=== PATIENT | male | born 1935 | race Caucasian/White ===

== ENCOUNTER 2018-12-20 16:59 | Emergency (ER) | payer BC ==
[~2018-12-20] VITALS: Ht 167.6 cm; Wt 71.0 kg
[2018-12-20] MEDS ORDERED: ONDANSETRON HCL 4MG/2ML INJ IV STA (17:11)
[2018-12-20 17:41] LABS: BASOPHILS % 0.4 % (0.0-2.0); HEMATOCRIT. 38.9 % (42.0-52.0); LYMPHOCYTES % 30.9 % (20.0-50.0); MEAN CORPUSCULAR HEMOGLOBIN 32.5 pg (28.0-32.0); MEAN CORPUSCULAR VOLUME 97.7 fL (80.0-94.0); MEAN PLATELET VOLUME 9.4 fl (7.4-10.4); MONOCYTES % 7.5 % (2.0-8.0); NEUTROPHILS % 59.2 % (40.0-76.0); PLATELET 148 x1000/uL (130-400); RED BLOOD CELL COUNT 3.98 mill/uL (4.7-6.1); RED CELL DISTRIBUTION WIDTH 13.5 % (11.6-14.6)
[2018-12-20 17:45] LABS: CHLORIDE 114 mEq/L (98-107); PROTHROMBIN TIME 10.2 sec (9.6-11.0)
[2018-12-20] MEDS: SODIUM CHLORIDE 0.9% 500 ML IV ONE ×2 (18:07→18:08)
[2018-12-20 22:20] VITALS: BP 159/80
== END 2018-12-20 22:22 | disposition home or self-care (01) ==
LOC: ER 16:59
DX: N17.9 Acute kidney failure, unspecified (principal); E86.0 Dehydration; I10 Essential (primary) hypertension
CPT/HCPCS: 36415; 71045; 80053; 83690; 83880; 84484; 85025; 85610; 93005; 96374; 99284; J2405; J7040